=== PATIENT | male | born 1995 | race American Indian/Alaskan Native ===

== ENCOUNTER 2021-11-07 01:48 | Emergency (ER) | payer OTHER ==
[2021-11-07 02:14] VITALS: BP 130/80
[2021-11-07] MEDS: MORPHINE 4 MG/1 ML INJ IV ONE (02:41)
[2021-11-07] MEDS: ONDANSETRON 4 MG/2 ML INJ IV ONE (02:41)
[2021-11-07] MEDS: SODIUM CHLORIDE 0.9% 1000 ML 1,000 ML IV ONE (02:42)
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
[2021-11-07] MEDS: ETOMIDATE 20 MG/10 ML INJ IV ONE (02:56)
--- NOTE | 2021-11-07 03:39 | XRay Report ---
LEFT SHOULDER 1 VIEW INDICATION / CLINICAL INFORMATION: post reduction COMPARISON: Left shoulder series from earlier today. FINDINGS: BONES and JOINT(S): There has been interval reduction of the glenohumeral joint. No acute displaced f racture is seen. No significant arthritis. SOFT TISSUES: No significant abnormality. ADDITIONAL FINDINGS: None. IMPRESSION: Interval reduction of the left shoulder without identification of an acute displaced fracture or othe r acute findings. Signer Name: Lui Serrato MD Signed: 11/07/2021 3:35 AM Workstation Name: [id number]
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
[2021-11-07] MEDS ORDERED: ONDANSETRON 4 MG/2 ML INJ IV ONE (04:22)
== END 2021-11-07 04:56 ==
LOC: ED 01:48
DX: S43.005A Unspecified dislocation of left shoulder joint, initial encounter (principal); S05.12XA Contusion of eyeball and orbital tissues, left eye, initial encounter; Y08.89XA Assault by other specified means, initial encounter; Y93.89 Activity, other specified; Y92.89 Other specified places as the place of occurrence of the external cause; Y99.8 Other external cause status
CPT/HCPCS: 23650; 70450; 70486; 72125; 73020; 73030; 96361; 96374; 96375; 99284; J2270; J2405; J3490